=== PATIENT | female | born 1985 | race Caucasian/White ===

== ENCOUNTER 2017-03-24 17:14 | Inpatient (IN) | payer BC, SELFPAY ==
[2017-03-24 17:40] VITALS: BMI 34.8
[2017-03-24] MEDS: Lactated Ringers 1,000 ML 50 ML IV ×2 (17:50→22:20)
[2017-03-24 18:08] LABS: Hematocrit 31.7 % (37-47); Hemoglobin 9.8 g/dl (12.0-15.0); Mean Corp Hgb Conc 30.9 g/gl (32-36); Mean Corpuscular Hgb 21.7 pg (27.0-32.0); Mean Corpuscular Volume 70.3 fL (81-99); Mean Platelet Vol. 11.9 fl (6.2-12.0); Platelet Count 193 K/mm3 (150-450); RBC Distribution Width CV 15.6 % (11.6-14.6); RBC Distribution Width SD 38.9 fl (35.1-43.9); Red Blood Count 4.51 M/mm3 (4.2-5.4); White Blood Count 13.2 K/mm3 (4.4-11.0)
[2017-03-24 18:09] LABS: Scan Indicated on CBC? Y/N YES- FLAGS NOTED
[2017-03-24 18:53] LABS: Differential Comment SCANNED
[2017-03-24] MEDS: 0.9% Normal Saline 100 ML IV.SOLN. INTRA-UTER (18:55)
--- NOTE | 2017-03-24 19:04 | PCM.HP.OB ---
(1) Polyhydramnios Status: Acute Qualifiers: Fetus number: single or unspecified fetus Trimester: third trimester Qualified Code(s): O40.3XX0 - Polyhydramnios, third trimester, not applicable or unspecified (2) Post-dates Status: Acute Qualifiers: Post-term type: 40-42 weeks gestation Qualified Code(s): O48.0 - Post-term (3) GBS (group B Streptococcus carrier), +RV culture, currently Status: Acute History Date of Admission: 03/24/17 Gestational age: 40 History of this : 32 year old female at 40w6d EGA by LMP, confirmed by 1st trimester U/S. In office today for U/S due to postdates for CLARK and NST. CLARK 24.5 and polyhydramnios. Recommended by Mary with [facility] for induction of labor. Membranes stripped in office today. Presented to L&D for samson bulb with Pitocin IOL. Irregular contractions since leaving office but increasing in strength and frequency. Denies headache, visual changes, chest pain, shortness of breath, vaginal bleeding, or leakage of fluid. Pertinent Past Medical History: GBS positive this Iron Deficiency Anemia with History of macrosomia 9lb Current CLARK 24.5 and EFW 9lb 1oz. Allergies No Known Allergies Allergy (Verified 03/24/17 17:41) Current Medications Acetaminophen (Tylenol) 325 - 650 mg PO Q4H PRN PRN PRN Reason: PAIN OR FEVER >100.4F Al Hydroxide/Mg Hydroxide (Mylanta Ii) 15 - 30 ml PO Q4H PRN PRN PRN Reason: INDIGESTION Citric Acid/Sodium Citrate (Bicitra) 30 ml PO UD PRN Lactated Ringer's () 1,000 mls @ 50 mls/hr IV .Q20H JAMESON Last Admin: 03/24/17 17:50 Dose: 50 mls/hr Oxytocin/Sodium Chloride () 30 units in 500 mls @ 1 mls/hr IV .Q500H JAMESON Penicillin G Potassium 5 mu/ (Dextrose) 105 mls @ 150 mls/hr IV X1 ONE Stop: 03/24/17 19:11 Last Admin: 03/24/17 18:36 Dose: 150 mls/hr Penicillin G Potassium/Dextrose (Penicillin G Potassium) 3 mu in 50 mls @ 100 mls/hr IV Q4H [facility] Nalbuphine HCl (Nubain) 5 - 10 mg IV Q3H PRN PRN PRN Reason: PAIN (4-10/10) Ondansetron HCl (Zofran) 4 mg IV Q8H PRN PRN PRN Reason: NAUSEA Promethazine HCl (Phenergan (Ll)) 6.25 - 12.5 mg IV Q4H PRN PRN; Protocol PRN Reason: IF NAUSEA PERSISTS Sodium Chloride () 5 - 15 ml IV UD [facility] Last Admin: 03/24/17 18:34 Dose: Not Given Smoking Status: Never smoker Alcohol: None Drug Use: none Number of Fetus(es): 1 Review of Systems Constitutional: Denies: Chills, Fever, Weight Change Respiratory: Denies: Cough, Shortness of breath at rest, Sputum production Gastrointestinal: Denies: Abdominal Pain, Nausea, Vomiting Genitourinary: Denies: Dysuria Physical Exam Vitals: RPR negative HIV negative GC/CT negative Rubella Immune GBS positive HbsAG negative B positive, antibody screen negative FHT 135, moderate variability, accels, no decels, Category 1 Contractions irregular, mild General: Alert, Oriented x3, No apparent distress Cardiovascular: Regular rate, Regular Rhythm Lungs: Clear to auscultation, No rhonchi, No wheeze Abdomen: Bowel Sounds Present, Gravid Extremities:: Other - BLE edema, non pitting Estimated gestational size: Large for gestational age - 9lb 1oz on U/S today 03/24/17 Presentation: Cephalic Cervix Dilation (cm): 2 - External os 4 but interal os 2cm. Samson bulb placed without difficulty, filled with 30ml NS. Patient tolerated well. IBOW. Station: -3 Effacement (%): 60 Assessment/Plan Active and Suspected Problems Polyhydramnios (Acute) Post-dates (Acute) GBS (group B Streptococcus carrier), +RV culture, currently (Acute) A: 32 year old at 40w6d single IUP for postdates Induction of labor GBS positive History of macrosomia Iron deficiency anemia P: 1) Routine L&D orders. IV saline lock. Continuous monitoring 2) Antibiotic GBS prophylaxis 3) Samson bulb and low dose Pitocin for IOL 4) Positional changes 5) notified of IOL LEANNA VeraM
[2017-03-24] MEDS: Oxytocin 30 units/NS 500 ml 30 UNITS/500 ML IV.SOLN IV (19:34)
[2017-03-24 23:23] LABS: AST(SGOT) 16 U/L (15-37); Alanine Aminotransfer ALT/SGPT 12 U/L (12-78); Alkaline Phosphatase 139 U/L (45-117); Bilirubin, Direct 0.14 mg/dL (0.00-0.30); Globulin 3.7 g/dL (2.2-4.2); Protein, Total 6.7 g/dL (6.4-8.2)
[2017-03-25] MEDS: Lactated Ringers 1,000 ML 50 ML IV ×2 (03:24→08:33)
--- NOTE | 2017-03-25 05:40 | PCM.PN.OB ---
Patient Problems: Active and Suspected Problems Polyhydramnios (Acute) Post-dates (Acute) GBS (group B Streptococcus carrier), +RV culture, currently (Acute) Subjective: Doing well, walking in room. Rested in bed early this am. sleeping at bedside. Objective: FHT 130, moderate variability, accels, no decels, Category 1 TOCO: every 3-5 minutes Cervix 5cm/80%/-3 ballotable - Physical Exam Weight: 190 lb 7.67 oz Body Mass Index (BMI) 34.8 Intake and Output for Last 24 Hours 03/23/17 03/24/17 03/25/17 23:59 23:59 23:59 Intake Total 1294 / 1294 Output Total 1100 / 1100 Balance 194 / 194 Laboratory Tests Past 24 Hrs 03/24/17 03/24/17 03/24/17 17:50 17:50 22:25 WBC 13.2 H RBC 4.51 Hgb 9.8 L Hct 31.7 L MCV 70.3 L MCH 21.7 L MCHC 30.9 L RDW 15.6 H RDW Differential 38.9 Plt Count 193 MPV 11.9 Differential Comment SCANNED Total Bilirubin 0.40 Direct Bilirubin 0.14 AST 16 ALT 12 Alkaline Phosphatase 139 H Total Protein 6.7 Albumin 3.0 L Globulin 3.7 Blood Type B POSITIVE Antibody Screen NEGATIVE Assessment/Plan Active and Suspected Problems Polyhydramnios (Acute) Post-dates (Acute) GBS (group B Streptococcus carrier), +RV culture, currently (Acute) A:Induction of labor P: 1) Positional changes, abdominal lifting and walcher's position 2) Pitocin to continue increasing and continue with active management
--- NOTE | 2017-03-25 09:37 | PCM.PN.BLA ---
Progress Note Patient comfortable with ctxs cvx - 5/80/-3 AROM clear fluid fhts 130's with mod variability, accels tocos - Q2 min A&P: cont pit induction
[2017-03-25] MEDS: Nalbuphine 10 MG/ML Ampul IV (11:19)
--- NOTE | 2017-03-25 11:37 | PCM.PN.OB ---
Patient Problems: Active and Suspected Problems Polyhydramnios (Acute) Post-dates (Acute) GBS (group B Streptococcus carrier), +RV culture, currently (Acute) - Physical Exam Weight: 190 lb 7.67 oz Body Mass Index (BMI) 34.8 Intake and Output for Last 24 Hours 03/23/17 03/24/17 03/25/17 23:59 23:59 23:59 Intake Total 3349 / 3349 Output Total 1100 / 1100 Balance 2249 / 2249 Laboratory Tests Past 24 Hrs 03/24/17 03/24/17 03/24/17 17:50 17:50 22:25 WBC 13.2 H RBC 4.51 Hgb 9.8 L Hct 31.7 L MCV 70.3 L MCH 21.7 L MCHC 30.9 L RDW 15.6 H RDW Differential 38.9 Plt Count 193 MPV 11.9 Differential Comment SCANNED Total Bilirubin 0.40 Direct Bilirubin 0.14 AST 16 ALT 12 Alkaline Phosphatase 139 H Total Protein 6.7 Albumin 3.0 L Globulin 3.7 Blood Type B POSITIVE Antibody Screen NEGATIVE Assessment/Plan Active and Suspected Problems Polyhydramnios (Acute) Post-dates (Acute) GBS (group B Streptococcus carrier), +RV culture, currently (Acute)
[2017-03-25] MEDS: Oxytocin 30 units/NS 500 ml 30 UNITS/500 ML IV.SOLN 334 UNITS IV (11:55)
[2017-03-25] MEDS: Oxytocin 30 units/NS 500 ml 30 UNITS/500 ML IV.SOLN 167 UNITS IV (12:25)
--- NOTE | 2017-03-25 12:49 | PCM.OB.VAG ---
(1) Polyhydramnios Status: Acute Qualifiers: Fetus number: single or unspecified fetus Trimester: third trimester Qualified Code(s): O40.3XX0 - Polyhydramnios, third trimester, not applicable or unspecified (2) Post-dates Status: Acute Qualifiers: Post-term type: 40-42 weeks gestation Qualified Code(s): O48.0 - Post-term (3) GBS (group B Streptococcus carrier), +RV culture, currently Status: Acute (4) Normal spontaneous vaginal delivery Status: Acute Vaginal Delivery Maternal Presentation: Medically Indicated Induction - Polyhydramnios, postdates 40w6d Method of Induction: Pitocin, Rose Bulb Medical Reason for Induction: - - Polyhydramnios Amniotic Membrane Rupture Type: Artificial - Large amount of clear fluid Amniotic Fluid Description: Clear Final AL: 03/18/17 Gestational age: 41 Weeks and 0 Days Date of Procedure: 03/25/17 Pre-Operative Diagnosis: Induction of labor Post-Operative Diagnosis: Normal spontaneous vaginal Surgery/ Procedure Performed: Spontaneous Vaginal Delivery Type of Anesthesia: None Description of Procedure: Patient progressed to 6cm and requested something for pain. Nubain 10mg and Phenergan 12.5mg IVP given. Patient rested. heart tones decreased to 80 and vaginal exam revealed anterior lip. Maternal positions changes, IV bolus, O2 via facemask and Pitocin turned off. heart rate returned to 115. Progressed to complete. Instructed patient to push with contraction. heart rate dropped to 60 and notified to come in for delivery. Hydrology Technician notified to come for delivery due to Nubain and heart rate down. Returned to 95-105. Patient with strong pushing effort and . notified eminiet delivery. NSVB of viable male over intact perineum. Delivered AMALIA with left arm compound presentation and CANx1. Placed on maternal abdomen with good tone but weak grimace. Cord clamped and cut and passed to pediatric staff. Strong cry and good breathing efforts. APGARS 8,9 and weight pending. Cord gases obtained. Pitocin IV started for active 3rd stage management, gentle cord traction/counter pressure. Placenta delivered with maternal effort, intact, 3 vessel cord. Perineum inspected and revealed bilateral periurethral lacerations, hemostatic and no repair required. Funds firm and EBL 200ml. Family bonding well, skin to skin with father as mother drowsy from Nubain. Planning to breastfeed. notified of delivery. Presentation: Vertex, AMALIA Placental Delivery Description: Spontaneous Placenta Disposition: [facility] Cord Vessel Description: 3 Vessels Nuchal Cord Compression: Without compression Cord Gases drawn per routine: ABG, VBG Cord Entanglement: Around neck x 1, loose Estimated Blood Loss: 200ml (1 minute): 8 (5 minute): 9 Laceration: Periurethral Extnsion/lac, 1st degree Medications given after delivery: IV Pitocin
--- NOTE | 2017-03-25 13:04 | OP.PCM_ITS ---
(1) Polyhydramnios Status: Acute Qualifiers: Fetus number: single or unspecified fetus Trimester: third trimester Qualified Code(s): O40.3XX0 - Polyhydramnios, third trimester, not applicable or unspecified (2) Post-dates Status: Acute Qualifiers: Post-term type: 40-42 weeks gestation Qualified Code(s): O48.0 - Post-term (3) GBS (group B Streptococcus carrier), +RV culture, currently Status: Acute (4) Normal spontaneous vaginal delivery Status: Acute Vaginal Delivery Maternal Presentation: Medically Indicated Induction - Polyhydramnios, postdates 40w6d Method of Induction: Pitocin, Rose Bulb Medical Reason for Induction: - - Polyhydramnios Amniotic Membrane Rupture Type: Artificial - Large amount of clear fluid Amniotic Fluid Description: Clear Final AL: 03/18/17 Gestational age: 41 Weeks and 0 Days Date of Procedure: 03/25/17 Pre-Operative Diagnosis: Induction of labor Post-Operative Diagnosis: Normal spontaneous vaginal Surgery/ Procedure Performed: Spontaneous Vaginal Delivery Type of Anesthesia: None Description of Procedure: Patient progressed to 6cm and requested something for pain. Nubain 10mg and Phenergan 12.5mg IVP given. Patient rested. heart tones decreased to 80 and vaginal exam revealed anterior lip. Maternal positions changes, IV bolus, O2 via facemask and Pitocin turned off. heart rate returned to 115. Progressed to complete. Instructed patient to push with contraction. heart rate dropped to 60 and notified to come in for delivery. Earth Moving Machine Operator notified to come for delivery due to Nubain and heart rate down. Returned to 95-105. Patient with strong pushing effort and . notified eminiet delivery. NSVB of viable male over intact perineum. Delivered AMALIA with left arm compound presentation and CANx1. Placed on maternal abdomen with good tone but weak grimace. Cord clamped and cut and passed to pediatric staff. Strong cry and good breathing efforts. APGARS 8,9 and weight pending. Cord gases obtained. Pitocin IV started for active 3rd stage management , gentle cord traction/counter pressure. Placenta delivered with maternal effort , intact, 3 vessel cord. Perineum inspected and revealed bilateral periurethral lacerations, hemostatic and no repair required. Funds firm and EBL 200ml. Family bonding well, skin to skin with father as mother drowsy from Nubain. Planning to breastfeed. notified of delivery. Presentation: Vertex, AMALIA Placental Delivery Description: Spontaneous Placenta Disposition: [facility] Cord Vessel Description: 3 Vessels Nuchal Cord Compression: Without compression Cord Gases drawn per routine: ABG, VBG Cord Entanglement: Around neck x 1, loose Estimated Blood Loss: 200ml (1 minute): 8 (5 minute): 9 Laceration: Periurethral Extnsion/lac, 1st degree Medications given after delivery: IV Pitocin
[2017-03-25] MEDS: Acetaminophen 500 MG Tablet 1000 MG PO (13:53)
[2017-03-25 16:00] VITALS: BP 133/70; PULSE 109; RESP 18; TEMP 37.3; O2SAT 95
[2017-03-25] MEDS: Ibuprofen 600 MG Tablet PO (18:03)
[2017-03-25] MEDS: Senna/Docusate Sodium 1 Tablet PO (18:03)
[2017-03-25 20:00] VITALS: BP 122/68; PULSE 100; RESP 18; TEMP 36.3; O2SAT 95
[2017-03-26] VITALS: BP 121/70; PULSE 108; RESP 18; TEMP 36.1; O2SAT 96
[2017-03-26 05:00] VITALS: BP 126/80; PULSE 102; RESP 18; TEMP 36.6; O2SAT 97
[2017-03-26] MEDS: Senna/Docusate Sodium 1 Tablet PO (08:17)
[2017-03-26 08:30] VITALS: BP 126/79; PULSE 98; RESP 20; TEMP 36.8; O2SAT 97
[2017-03-26 14:25] VITALS: BP 135/80; PULSE 110; RESP 18; TEMP 36.8; O2SAT 95
[2017-03-26 16:22] LABS: Absolute Lymphocyte Count 1.32 X10^3/ul (0.83-4.51); Absolute Neutrophil Count 11.3 X10^3/uL (2.0-7.7); Basophil# 0.02 X10^3/uL; Basophil% 0.1 % (0-1); Eosinophil# 0.09 X10^3/uL; Eosinophils% 0.7 % (0-5); Hematocrit 30.5 % (37-47); Hemoglobin 9.2 g/dl (12.0-15.0); Lymphocyte # 1.32 X10^3/ul (4.0); Lymphocyte % 9.7 % (19-41); Mean Corp Hgb Conc 30.2 g/gl (32-36); Mean Corpuscular Hgb 21.5 pg (27.0-32.0); Mean Corpuscular Volume 71.3 fL (81-99); Mean Platelet Vol. 10.5 fl (6.2-12.0); Monocyte# 0.82 X10^3/uL; Monocyte% 6.1 % (0-10); Neutrophil # 11.26 X10^3/uL (2.7-7.7); Neutrophil % 83.1 % (47-70); Platelet Count 195 K/mm3 (150-450); RBC Distribution Width CV 16.1 % (11.6-14.6); RBC Distribution Width SD 41.1 fl (35.1-43.9); Red Blood Count 4.28 M/mm3 (4.2-5.4); White Blood Count 13.6 K/mm3 (4.4-11.0)
[2017-03-26 16:24] LABS: Differential Indicated SCAN CRITERIA MET; POSITIVE COUNT NO; POSITIVE DIFFERENTIAL NO; POSITIVE MORPHOLOGY YES
--- NOTE | 2017-03-26 17:14 | PN.OBGYN_ITS ---
Patient Problems: Active and Suspected Problems Polyhydramnios (Acute) Post-dates (Acute) GBS (group B Streptococcus carrier), +RV culture, currently (Acute) Normal spontaneous vaginal delivery (Acute) Subjective: Doing well per patient and nursing staff. Ambulating and taking PO without difficulty. Voiding and passing flatus. Denies any headache, visual changes, chest pain, shortness of breath, dizziness, leg pain, increased vaginal bleeding or clots. without difficulty. Planning to go home tomorrow. - Physical Exam General: Alert, Oriented x3, Cooperative Lungs: Clear to auscultation, Normal air movement, No rhonchi, No wheeze Cardiovascular: Regular rate, Regular Rhythm, No murmurs Abdomen: Bowel Sounds Present, Soft, Non Tender, - - Fundus firm 2 below U Extremities: Edema - +1 BLE edema Psych/Mental Status: Normal Affect, Appropriate Vital Signs Temp Pulse Resp BP Pulse Ox 98.3 F 110 H 18 135/80 H 95 03/26/17 14:25 03/26/17 14:25 03/26/17 14:25 03/26/17 14:25 03/26/17 14:25 Oxygen Delivery Method Room Air Weight: 190 lb 7.67 oz Body Mass Index (BMI) 34.8 Intake and Output for Last 24 Hours 03/24/17 03/25/17 03/26/17 23:59 23:59 23:59 Intake Total 5539 / 5539 Output Total 2024 / 2024 Balance 3514 / 3514 Laboratory Tests Past 24 Hrs 03/26/17 15:55 WBC 13.6 H RBC 4.28 Hgb 9.2 L Hct 30.5 L MCV 71.3 L MCH 21.5 L MCHC 30.2 L RDW 16.1 H RDW Differential 41.1 Plt Count 195 MPV 10.5 Immature Gran % (Auto) 0.300 Neut % (Auto) 83.1 H Lymph % (Auto) 9.7 L [place] % (Auto) 6.1 Eos % (Auto) 0.7 Baso % (Auto) 0.1 Absolute Neuts (auto) 11.3 H Absolute Lymphs (auto) 1.32 Total Counted Pending Assessment/Plan Active and Suspected Problems Polyhydramnios (Acute) Post-dates (Acute) GBS (group B Streptococcus carrier), +RV culture, currently (Acute) Normal spontaneous vaginal delivery (Acute) A: PPD#1 P: 1) Routine PP orders 2) Planning D/C home tomorrow 3) Hgb 9.2 Ferrous Sulfate 325mg PO BID
--- NOTE | 2017-03-26 17:15 | PCM.DCVAG ---
Discharge Diet: No Restrictions Discharge Activity: Return to Normal Activity, May Shower, May Take a Tub Bath May resume sexual activity in: 4-6 weeks Weight Bearing Status: Weight bearing as tolerated Call your doctor if your incision/area has: Continuous Slow Oozing, Sudden Increased Bleeding, Increased Pain/ Swelling, Increased Redness, Foul Smelling Discharge Additional Instructions: If you experience any of the following, contact your healthcare provider. Bleeding that soaks a pad every hour for 2 hours Fever 100.4 or higher Unrelieved incision or abdominal pain Swelling, redness, discharge or bleeding from your incision or episiotomy site Your incision begins to separate Problems urinating (including inability to urinate or burning while urinating). Visual changes Severe headache Flu-like symptoms Pain or redness in one of both of your breasts Pain, warmth, tenderness or swelling in your legs, especially the calf area Frequent nausea and vomiting Symptoms of depression or anxiety If you experience any of the following, call 911 or go to the nearest Emergency Room. Chest pain Problems breathing Seizure activity Partial or complete paralysis of a body part, slurred speech, weakness or drooping of the face, or a sudden inability to walk or hold your balance Allergies/Adverse Reactions: Allergies No Known Allergies Allergy (Verified 03/24/17 17:41) Medications to take at Discharge Vits [Prenatabs FA ] 1 tablet PO DAILY 02/18/14 Please Follow Up With: Isis Hanson CNM When: Call to make an appointment with your doctor in 6 weeks. If you had elevated Blood Pressure or 4th degree laceration you will need to be seen in 2 weeks. Primary Care Physician: Care Physician,No Primary [Primary Care Provider] -
--- NOTE | 2017-03-26 17:16 | DCINST_ITS ---
Discharge Diet: No Restrictions Discharge Activity: Return to Normal Activity, May Shower, May Take a Tub Bath May resume sexual activity in: 4-6 weeks Weight Bearing Status: Weight bearing as tolerated Call your doctor if your incision/area has: Continuous Slow Oozing, Sudden Increased Bleeding, Increased Pain/ Swelling, Increased Redness, Foul Smelling Discharge Additional Instructions: If you experience any of the following, contact your healthcare provider. * Bleeding that soaks a pad every hour for 2 hours * Fever 100.4 or higher * Unrelieved incision or abdominal pain * Swelling, redness, discharge or bleeding from your incision or episiotomy site * Your incision begins to separate * Problems urinating (including inability to urinate or burning while urinating) . * Visual changes * Severe headache * Flu-like symptoms * Pain or redness in one of both of your breasts * Pain, warmth, tenderness or swelling in your legs, especially the calf area * Frequent nausea and vomiting * Symptoms of depression or anxiety If you experience any of the following, call 911 or go to the nearest Emergency Room. * Chest pain * Problems breathing * Seizure activity * Partial or complete paralysis of a body part, slurred speech, weakness or drooping of the face, or a sudden inability to walk or hold your balance Allergies/Adverse Reactions: Allergies No Known Allergies Allergy (Verified 03/24/17 17:41) Medications to take at Discharge Vits [Prenatabs FA ] 1 tablet PO DAILY 02/18/14 Please Follow Up With: Isis Hanson CNM When: Call to make an appointment with your doctor in 6 weeks. If you had elevated Blood Pressure or 4th degree laceration you will need to be seen in 2 weeks. Primary Care Physician: Care Physician,No Primary [Primary Care Provider] -
[2017-03-26] MEDS: Ferrous Sulfate 325 MG Tablet PO (17:51)
[2017-03-26 20:29] VITALS: BP 128/76; PULSE 95; RESP 16; TEMP 36.3; O2SAT 97
--- NOTE | 2017-03-26 20:30 | NURSING ---
Patient passed a golf ball size flat clot at this time. Patient denies feeling dizzy or lightheaded. Fundus remains firm bleeding small amount. Patient encouraged to call RN if she becomes symptomatic or passes further clots.
[2017-03-27 02:15] VITALS: BP 130/79; PULSE 92; RESP 18; TEMP 36.4; O2SAT 96
[2017-03-27 07:45] VITALS: BP 130/72; PULSE 99; RESP 16; TEMP 36.3; O2SAT 97
--- NOTE | 2017-03-27 08:13 | PN.OBGYN_ITS ---
Patient Problems: Active and Suspected Problems Polyhydramnios (Acute) Post-dates (Acute) GBS (group B Streptococcus carrier), +RV culture, currently (Acute) Normal spontaneous vaginal delivery (Acute) Subjective: Doing well per patient and nursing staff. Ambulating and taking PO without difficulty. Voiding and BM without any issues. . Denies any headache, visual changes, chest pain, shortness of breath, dizziness, leg pain, or increased vaginal bleeding or clots. Planning for D/C home today. - Physical Exam General: Alert, Oriented x3, Cooperative Lungs: Clear to auscultation, Normal air movement, No rhonchi, No wheeze Cardiovascular: Regular rate, Regular Rhythm, No murmurs Abdomen: Bowel Sounds Present, Soft, Non Tender, - - Fundus firm 2 below U Extremities: Edema - +1 BLE edema. Cheikh's negative bilaterally. Psych/Mental Status: Normal Affect, Appropriate Vital Signs Temp Pulse Resp BP Pulse Ox 97.6 F L 92 18 130/79 H 96 03/27/17 02:15 03/27/17 02:15 03/27/17 02:15 03/27/17 02:15 03/27/17 02:15 Oxygen Delivery Method Room Air Weight: 190 lb 7.67 oz Body Mass Index (BMI) 34.8 Intake and Output for Last 24 Hours 03/25/17 03/26/17 03/27/17 23:59 23:59 23:59 Intake Total 5539 / 5539 Output Total 2024 / 2024 Balance 3514 / 3514 Laboratory Tests Past 24 Hrs 03/26/17 15:55 WBC 13.6 H RBC 4.28 Hgb 9.2 L Hct 30.5 L MCV 71.3 L MCH 21.5 L MCHC 30.2 L RDW 16.1 H RDW Differential 41.1 Plt Count 195 MPV 10.5 Immature Gran % (Auto) 0.300 Neut % (Auto) 83.1 H Lymph % (Auto) 9.7 L [place] % (Auto) 6.1 Eos % (Auto) 0.7 Baso % (Auto) 0.1 Absolute Neuts (auto) 11.3 H Absolute Lymphs (auto) 1.32 Total Counted Not Reportable Assessment/Plan Active and Suspected Problems Polyhydramnios (Acute) Post-dates (Acute) GBS (group B Streptococcus carrier), +RV culture, currently (Acute) Normal spontaneous vaginal delivery (Acute) A: PPD#2 Iron Deficiency Anemia P: 1) D/C instructions and instructions given 2) Continue Ferrous Sulfate 325mg PO BID 3) F/U in 6 weeks for PP visit.
[2017-03-27] MEDS: Ferrous Sulfate 325 MG Tablet PO (08:36)
[2017-03-27 14:15] VITALS: BP 134/72; PULSE 86; RESP 16; TEMP 37.3; O2SAT 98
--- NOTE | 2017-03-27 15:34 | NURSING ---
mother and baby bands verified by mother. mother signed baby discharge sheet
== END 2017-03-27 15:25 | disposition home or self-care (01) | DRG 775 ==
PROVIDERS: Advanced Practice Midwife; Admitting Provider Obstetrics & Gynecology; Visit Provider Obstetrics & Gynecology
DX: O40.3XX0 Polyhydramnios, third trimester, not applicable or unspecified (principal); D50.9 Iron deficiency anemia, unspecified; O76 Abnormality in fetal heart rate and rhythm complicating labor and delivery; O48.0 Post-term pregnancy; O69.81X0 Labor and delivery complicated by cord around neck, without compression, not applicable or unspecified; O71.82 Other specified trauma to perineum and vulva; O99.820 Streptococcus B carrier state complicating pregnancy; O99.02 Anemia complicating childbirth; Z37.0 Single live birth; Z3A.40 40 weeks gestation of pregnancy; Z87.59 Personal history of other complications of pregnancy, childbirth and the puerperium
CPT/HCPCS: 59025; 59050; 80076; 85025; 85027; 86850; 86900; 99218; J7120; A4216; G0378

== ENCOUNTER 2018-09-30 19:42 | Emergency (ER) | payer BC, SELFPAY ==
[2018-09-30 19:43] VITALS: BP 132/77; PULSE 84; RESP 15; TEMP 36.9; O2SAT 95; BMI 25.6
--- NOTE | 2018-09-30 20:10 | ED.VIS.GEN ---
History of Present Illness Chief Complaint: Laceration Detail of Chief Complaint: Forehead laceration Informant: Patient Onset: Today Current Severity: Mild Maximum Severity: Mild Narrative: Patient states that she was pulling a piece of molding of the door frame when it came back and hit her across the upper forehead. She has an approximately 2 cm laceration. Bleeding is well controlled. She states that I am good on her tetanus shot. She denies any other injury. Past Medical History - Allergies and Home Meds Allergies/Adverse Reactions: Allergies erythromycin base Allergy (Verified 09/30/18 19:46) Unknown Primary Care Physician: Care Physician,No Primary [NON-STAFF] - Prior records reviewed: Yes Past Medical History: - - Reviewed Lives: With Family Smoking Status: Never smoker Review of Systems General: Denies: Chills, Fever Eyes: Denies: Visual changes - bilaterally ENT: Denies: Bilateral ear pain Cardiovascular: Denies: Chest pain Respiratory: Denies: Dyspnea, Cough Gastrointestinal: Denies: Abdominal pain, Nausea, Vomiting, Diarrhea Skin: Reports: Wounds Neurological: Denies: Headache, Weakness, Parasthesia Hematologic: Denies: Easy bruising, Easy bleeding Allergy: Denies: Uticaria Physical Exam Vital Signs/Narrative: Vital Signs Temp Pulse Resp BP Pulse Ox 09/30/18 19:43 98.5 F 84 15 132/77 H 95 Inital Vital Signs reviewed: Yes General: Well nourished Head: Trauma - 2 cm linear laceration to the midline upper forehead slightly into the hairline. Eyes: Perrl, EOMI ENT: No rhinorrhea Neck: Nontender Cardiovascular: Regular rate, Regular rhythm Respiratory: No distress, CTA bilaterally Abdomen: Soft, Nontender Back: Nontender Extremities: Nontender Neurological: Alert, Oriented x3 Psychological: Normal affect Diagnostic/Tx/Re-eval - Medical Decision Making Patient had let applied to her wound. Wound is anesthetized with 4 cc of 1% lidocaine. Wound was cleansed and 3 simple interrupted sutures were placed with 6-0 nylon. Wound care instructions were given. She is to follow-up with her doctor in 4 or 5 days for suture removal. Procedures - Lacerations No standard instances Length: 0.79 in Depth: Skin Shape: Linear Prep: Moncho Laceration repair: Lidocaine, Local, - - Let topically followed by lidocaine. Number of Sutures/Desire: 3 Suture Information: Vicryl, 6-0 ED Disposition - Plan for ED Patient: Disposition: Home or Assisted Living Diagnosis: Forehead laceration Instructions: LACERATION, Face (Suture or Tape) Additional Instructions: Have your stitches removed in 4-5 days as discussed.
[2018-09-30] MEDS: Lidocaine/Epi/Tetracaine 50 ML 1 APPLIC TOPICAL (20:15)
[2018-09-30 21:21] VITALS: RESP 16
== END 2018-09-30 21:23 | disposition home or self-care (01) ==
PROVIDERS: Emergency Provider Emergency Medicine
DX: S01.81XA Laceration without foreign body of other part of head, initial encounter (principal); W22.8XXA Striking against or struck by other objects, initial encounter; Y93.89 Activity, other specified; Y92.9 Unspecified place or not applicable
CPT/HCPCS: 12011; 99283

== ENCOUNTER 2021-07-18 12:40 | Emergency (ER) | payer BC, SELFPAY ==
[2021-07-18 12:42] VITALS: BP 142/85; PULSE 94; RESP 16; TEMP 36.4; O2SAT 99; BMI 26.5
--- NOTE | 2021-07-18 12:55 | RAD_ITS ---
STUDY: X-RAY - SACRUM/COCCYX REASON FOR EXAM: Female, 36 years old. Pain after a fall TECHNIQUE: 4 view(s) of the sacrum and coccyx were obtained. COMPARISON: None. FINDINGS: Normal bilateral sacroiliac joints. Normal visualized sacral ala and fused sacral bodies. Normal sacrococcygeal junction with a normal angulation. Normal coccygeal segments. The presacral soft tissue structures are unremarkable. RAD/Sacrum-Coccyx min 2 Views IMPRESSION: Normal x-rays of the sacrum and coccyx. Electronically Signed: Fuad Cox MD at 14:46 EDT ,
--- NOTE | 2021-07-18 12:55 | RAD_ITS ---
STUDY: X-RAY - PELVIS REASON FOR EXAM: Female, 36 years old. Pain after fall TECHNIQUE: One view of the pelvis was obtained. COMPARISON: None. FINDINGS: There is a non-specific bowel gas pattern. Normal visualized soft tissue structures. Normal bilateral iliac wings, sacroiliac joints and visualized sacrum. Normal visualized bilateral superior and inferior pubic rami. Normal pubic symphysis. Normal ischial tuberosities. Normal visualized right femoral head. Normal right acetabulum. Normal right hip joint. Normal visualized left femoral head. Normal left acetabulum. Normal left hip joint. RAD/Pelvis 1 or 2 Views IMPRESSION: Normal x-ray examination of the pelvis. Electronically Signed: Fuad Cox MD at 14:42 EDT ,
--- NOTE | 2021-07-18 12:55 | RAD_ITS ---
STUDY: X-RAY - RIGHT KNEE REASON FOR EXAM: Female, 36 years old. Pain after a fall TECHNIQUE: 2 view(s) of the knee. COMPARISON: None. FINDINGS: Normal visualized distal femur. Normal visualized proximal tibia and fibula. Normal proximal tibiofibular articulation. Normal medial femorotibial compartment. Normal lateral femorotibial compartment. Normal patellofemoral articulation. The soft tissue structures are unremarkable. RAD/Knee 1 or 2 Views IMPRESSION: Normal x-ray examination of the knee. Electronically Signed: Fuad Cox MD at 14:37 EDT ,
--- NOTE | 2021-07-18 12:56 | EX.ED.GENINJ ---
HPI History of Present Illness Chief Complaint: Fall Detail of Chief Complaint: Fall with injury to the right knee and coccyx 9 days ago Informant: patient Narrative Narrative: Patient presents to the emergency department after falling on her steps that are made of wood 9 days ago. Patient states that she fell directly onto her buttocks and injured her tailbone. Patient also injured her knee but she is not sure if she just banged it when she fell forward after landing on her bottom or if she twisted it. Patient had a hard time bearing weight on the knee. Patient also states has been sitting on a doughnut because of the pain in her bottom. Patient denies loss of consciousness. Patient has been using ice to the area. PFSH PFS Medical History no medical history Home Medications NK 09/30/18 [History Last Taken Unknown] Allergy/AdvReac Type Severity Reaction Status Date / Time erythromycin base Allergy Unknown Verified 07/18/21 12:41 Social History Smoking Status: Never smoker ROS ROS ED Constitutional Constitutional ED: Reports systems reviewed and no addt'l complaints, except as documented; Denies body ache(s), change in weight or chills Eyes Eyes: Denies acute decrease in peripheral vision, change in vision, double vision or loss of vision ENT ENT ED: Reports none; Denies ear pain, lip swelling, loss taste/smell, neck pain, otalgia or sore throat Cardiovascular Cardiovascular: Reports none; Denies abdominal pain, chest pain with activity, leg edema, lightheadedness, palpitations, rapid heart rate or syncope Respiratory/Chest Respiratory/Chest: Reports none; Denies change in mental status, dry cough, dyspnea, hemoptysis, shortness of breath at rest or shortness of breath with exertion Gastrointestinal Gastrointestinal: Reports none; Denies abdominal pain, change in stool character, diarrhea, hematemesis, hematochezia, melena, rectal bleeding or vomiting Genitourinary Genitourinary ED: Reports none; Denies abdominal discomfort, anuria, dysuria, genital pain or polyuria Musculoskeletal Musculoskeletal: Reports none and other Details: Tailbone pain, right knee pain ; Denies arthralgias, back pain, difficulty walking, extremity pain, muscle weakness or myalgias Integumentary Reports none; Denies abscess or rash Neurologic Neurologic: Reports none; Denies abnormal gait, confusion, focal weakness, frequent falls, headache(s), loss of vision, numbness, paresthesias, radicular pain, vertigo or weakness Psychiatric Psychiatric: Reports systems reviewed and no addt'l complaints, except as documented and none; Denies behavioral changes, confusion, difficulty concentrating, hallucinations, suicidal ideation, tactile hallucinations or visual hallucinations Endocrine Endocrinology: Denies none, cold intolerance, excessive sweating, fatigue or heat intolerance Hematologic/Lymphatic Hematologic/Lymphatic: Reports none; Denies anemia, easy bleeding or easy bruising Allergic/Immunologic Allergic/Immunologic ED: Denies as per HPI, none, lip swelling, mouth swelling, throat swelling, tongue swelling or hives EXAM Physical Exam Const Vital Signs: 07/18/21 12:42 07/18/21 14:43 Temperature 97.6 F L Temperature Source Temporal Pulse Rate 94 82 Respiratory Rate 16 14 Blood Pressure 142/85 H 118/77 Blood Pressure Mean 104 90 Pulse Ox 99 96 Oxygen Delivery Method Room Air Room Air Positive well nourished and well developed General Appearance ED: well developed and NAD HEENT Reports TM's clear and moist mucous membranes normocephalic and atraumatic; Negative for trauma or tenderness Tympanic Membrane ED: Yes TM's clear Eyes PERRL and EOMs intact bilaterally General Eye ED: Negative for pale conjunctiva or scleral icterus Neck no lymphadenopathy, supple and no JVD General: Negative for tenderness Chest Wall inspection of chest normal and palpation of chest normal Chest: Negative for tenderness Resp normal respiratory effort and clear to auscultation bilaterally Effort and Inspection: Negative for respiratory distress or pain with movement Auscultation: Negative for rhonchi, wheezes or diminished lung sounds Cardio regular rate, regular rhythm, S1 normal heart sound, S2 normal heart sound and no murmurs Peripheral Pulses: pulses 2+ throughout GI normal to inspection, nondistended, normoactive bowel sounds, soft to palpation, non-tender, non-distended and no masses Back/Spine no CVA tenderness and no thoracic nor lumbar tenderness Back/Spine Narrative: Patient has tenderness palpation over the coccyx and sacrum. Extremity normal to inspection Extremity Narrative: Evaluation of the right knee reveals no effusion. She has tenderness palpation over the medial joint line. She has good range of motion in flexion and extension but did have pain medially with complete extension. Ligamentous exam secondary to pain is quite difficult but no obvious laxity noted. General Extremety ED: Negative for edema General Extremity: Negative for edema Neuro oriented x3, CN's II-XII intact bilaterally, no sensory deficits noted and gait normal Sensorium / Orientation: awake, alert, oriented to person, oriented to place and oriented to time Motor Exam: strength 5/5 throughout and strength abnormal Psych mental status grossly normal Skin no rashes or lesions noted and no wounds MDM MDM MDM Narrative Medical decision making narrative: Patient had x-rays of the right knee as well as pelvis and sacrum and coccyx. No fractures are noted. This point patient will be given a knee immobilizer for her knee. She is referred to orthopedics for follow-up. She understands I cannot rule out internal derangement of ligament or meniscus. Patient may need further evaluation with MRI if symptoms do not resolve. Radiography Diagnostic Testing: Clinical Impression(s) from Imaging Studies Knee X-Ray 07/18/21 12:55 IMPRESSION: Normal x-ray examination of the knee. Electronically Signed: Fuad Cox MD at 14:37 EDT , Pelvis X-Ray 07/18/21 12:55 IMPRESSION: Normal x-ray examination of the pelvis. Electronically Signed: Fuad Cox MD at 14:42 EDT , Sacrum and Coccyx X-Ray 07/18/21 12:55 IMPRESSION: Normal x-rays of the sacrum and coccyx. Electronically Signed: Fuad Cox MD at 14:46 EDT , 1 view x-ray of pelvis obtained interpreted by myself as no acute fractures or dislocations. Radiology in agreement. Patient also had 4 view x-rays of the right knee interpreted by myself as no acute fractures or dislocations and radiology in agreement. Patient had 2 view x-rays of sacrum and coccyx interpreted by myself as no acute fractures and radiology in agreement. Discharge Plan Triage Chief Complaint: Fall ED Provider: Tracy Ulloa Dx/Rx/DC Orders Clinical Impression: Coccygeal contusion, Right knee sprain Instructions: ED Coccyx or Sacrum Contusion, ED Knee Sprain Prescriptions: No Action NK RF: 0 Primary Care Provider: Jaime Galvez,Out of Referrals: Derick Reddy MD [STAFF PHYSICIAN] - 3-5 Days [facility] Doctor,Out of [Primary Care Provider] - Disposition Disposition: Home, Self Care
[2021-07-18 14:43] VITALS: BP 118/77; PULSE 82; RESP 14; O2SAT 96
== END 2021-07-18 15:40 | disposition home or self-care (01) ==
PROVIDERS: Emergency Provider Emergency Medicine; Visit Provider Emergency Medicine
DX: S80.01XA Contusion of right knee, initial encounter (principal); W19.XXXA Unspecified fall, initial encounter
CPT/HCPCS: 72170; 72220; 73560; 99283